=== PATIENT | female | born 1960 | race Caucasian/White ===

== ENCOUNTER 2016-06-07 23:42 | Emergency (ER) | payer BC, OTHER ==
[~2016-06-07 23:42] MED LIST: AUGMENTIN875 MG PO; BACTRIM DS DPS1 TAB PO; BENTYL-DPS20 MG PO; DURAGESIC-1212 MCG TP; IMODIUM DPS2 MG PO; JANUMET XR 1001 EACH PO; JANUVIA100 MG PO; KEPPRA DPS500 MG PO; KLOR-CON M2020 ME1 PO; LASIX DPS40 MG PO; LYRICA150 MG PO; MIRAPEX DPS0.25 MG PO; OXYCONTIN40 MG PO; PERCOCET 10 DPS1 TAB PO; PRILOSEC DPS20 MG PO; SURFAK DPS240 MG PO; SYNTHROID DPS0.05 MG PO; VIBERZI100 MG PO; XYLOCAINE JELLY30 GM TP; ZOFRAN ODT4 MG PO
--- NOTE | 2016-06-08 10:31 | CO ---
ADMIT: 06/07/2016 RM/LOC: ER [facility] MR#: [id number] [address] PERFECTO NAR[address]N [address] [place] [id number] Consultation SEX: F AGE: 56 : 1960 DATE OF CONSULTATION: 06/07/2016 ATTENDING PHYSICIAN: Vin Gilliland MD CONSULTING PHYSICIAN: Salvador Jane MD This is a consult from Dr. Gilliland in the ER. REASON FOR CONSULT: Fall downstairs with broken neck. HISTORY OF PRESENT ILLNESS: Ms. Narayanan is a very pleasant woman, who is sitting somehow this parlayed into tripping over the cat and falling down a flight of stairs. She has pain in the entire left side of her body with her wrist, chest wall, leg, as well as her right ankle. She is unsure if her left wrist is broken. She has generalized neuropathy and is constantly numb and tingly. She has Guillain-[place]. She is on multiple pain medications for that and she has had it for the last six years. PAST MEDICAL HISTORY: Guillain-[place]; GERD; hiatal hernia, status post repair with panniculectomy and cholecystectomy about 6 months ago that she says she is finally starting to feel better and getting back to herself from hypothyroidism; seizures; and acute kidney injury. MEDICATIONS: 1. Prilosec. 2. Lyrica. 3. Furosemide. 4. Synthroid. 5. Potassium chloride. 6. Oxycodone. 7. OxyContin. 8. Keppra. 9. Fentanyl patch. SOCIAL HISTORY: She lives at home. ALLERGIES: CODEINE, ASPIRIN, AND CORTISONE. SOCIAL HISTORY: She is nonsmoker, nondrinker. FAMILY HISTORY: No history of neurosurgical disease in the family. REVIEW OF SYSTEMS: A complete review of systems was obtained and pertinent positives in the history of present illness. PHYSICAL EXAMINATION: VITAL SIGNS: Blood pressure 137/73, 60 beats, 16 respirations, 97.6 degrees, and 94% on room air. GENERAL: She is an unhealthy morbidly obese appearing older than her stated age of 56 appearing woman. ADMIT: 06/07/2016 RM/LOC: ER [facility] MR#: [id number] [id number] [address] PERFECTO NARAYANAN [address] [place] [id number] Consultation SEX: F AGE: 56 : 1960 HEENT: With an atraumatic head. No scleral icterus. Clear oropharynx. Normal respiratory excursion. She does have some conjunctival injection. Mucous membranes are somewhat desiccated. ABDOMEN: She has morbidly obese abdomen. CHEST: Normal respiratory excursion. Tenderness about the left chest wall. EXTREMITIES: Tenderness in the left wrist, tenderness in the right ankle. SKIN: Sclerotic in the lower extremities with some 1+ pitting edema. NEUROLOGICAL EXAMINATION: MENTAL STATUS: She is awake, alert, oriented x4. She has no dysphonia, dysarthria, or aphasia. Her affect is appropriate. Her thought content is normal. Cranial nerves, II through 12 individually tested and found to be intact without deficit. Motor exam is quite difficult to obtain. She has full strength in the right arm. Appears to have full strength in bilateral lower extremities. Left arm is difficult to test. She is currently in a splint. She does move her fingers. Sensation appears to be intact to light touch in the upper extremities. She has neuropathy with decreased sensation in bilateral lower extremities. Deep tendon reflexes 1/4 globally. Gait not tested. Cerebellar with the way she is sitting and positioned, unable to have her perform complex movements. ASSESSMENT AND PLAN: Ms. Narayanan is a very pleasant woman with a C2 body fracture. I think, it is possible this is going to heal in a collar. We will leave her in a collar and give her prescription for a [place] J. She continues with the [place] collar that she is in during showers. She wears collar at all times. I counseled her on this and six-week follow up. I will plan to see her back if she has any neurological changes. Otherwise, I will plan to see her in six weeks with x-rays at that time. Salvador Jane MD/ deisy JOB #: [id number] CC: Vin Gilliland MD, Attending Physician Damien Fan MD, Family Physician
--- NOTE | 2016-06-08 19:14 | ER ---
ADMIT: 06/07/2016 RM/LOC: ER [facility] MR#: [id number] [address] [address] [place] [address] Emergency Room Report SEX: F AGE: 56 : 1960 DATE: 06/07/2016 HISTORY OF PRESENT ILLNESS: The patient is a 56-year-old female with past medical history of nausea, Guillain-[place], seizure disorder, and ARNOL, came to the ER because the patient states she was coming down the stairs, and there were 12 steps and a cat jumped on the way and she tripped and rolled down all the 12 steps with possible loss of consciousness. The patient states she woke up and she was the bottom of the steps, and she was ambulating, and she called the son. The patient complains of bilateral paraspinal cervical pain, and also left distal forearm and wrist pain mostly on the radial part. PHYSICAL EXAMINATION: VITAL SIGNS: Vitals are normal and stable. GENERAL: The patient is alert and oriented to person, place, and time at the moment. HEAD AND NECK: The patient had the paraspinal tenderness bilaterally without any step-offs in the midline. HEENT: Pupils are 3 mm, reactive to light. There is no hemotympanum, and there is no Pena sign or raccoon eyes. There are no signs of hematoma. There is no chief fracture of the teeth. The rest of the physical exam is noncontributory. CHEST: Clear bilateral with normal S1 and S2. ABDOMEN: Soft. PELVIS: Stable. MUSCULOSKELETAL: The patient had no spinal midline tenderness or step-offs. EXTREMITIES: The patient can grossly move all the extremities. Sensory, motor, and cranial nerves are grossly normal. The patient had moderate tenderness in the radial part of distal left forearm. X-ray of the left forearm and the wrist showed distal radius chronic fracture its healing tissue. I did not see any obvious fracture of the left wrist. The pain was controlled. CT of the brain was negative for any bleeding or acute changes. CT of the neck was positive for anterior-inferior base of the dens fracture. Neurosurgery, Dr. Jane was consulted, and he advised that the patient can be discharged to home with [place] Collar, and follow up in six weeks with Neurosurgery clinic. Left forearm was put in a volar splint, and neurovascular exam afterwards was normal. The patient was also put on a sling and was discharged to home with return precautions, follow up with the Orthopedic Surgery today for recheck, followup six weeks [address] Dr[address] Jane's clinic, nor surgery Clinic. Vin Gilliladn MD/ deisy JOB #: [id number] CC: Vin Gilliland MD, Attending Physician Damien Fan MD, Family Physician
== END 2016-06-08 04:00 | disposition home or self-care (01) ==
LOC: ER 23:42
PROC: 2W3DX1Z Immobilization of Left Lower Arm using Splint (ICD-10-PCS; principal; 2016-06-07)
DX: S12.110A Anterior displaced Type II dens fracture, initial encounter for closed fracture (principal); Z88.5 Allergy status to narcotic agent; Z88.8 Allergy status to other drugs, medicaments and biological substances; W10.9XXA Fall (on) (from) unspecified stairs and steps, initial encounter

== ENCOUNTER → 2016-08-07 | Outpatient (CLI) | payer BC | END | disposition home or self-care (01) | LOC: RAD.S 14:08 | DX: S12.100A Unspecified displaced fracture of second cervical vertebra, initial encounter for closed fracture (principal); M47.892 Other spondylosis, cervical region; M48.8X2 Other specified spondylopathies, cervical region; M48.00 Spinal stenosis, site unspecified; W19.XXXA Unspecified fall, initial encounter ==